=== PATIENT | male | born 1995 | race Caucasian/White ===

== ENCOUNTER 2022-11-07 08:04 | Emergency (ER) | payer SELFPAY ==
[2022-11-07 08:06] VITALS: BP 109/63; PULSE 87; RESP 18; TEMP 36.4; O2SAT 100; BMI 19.9
--- NOTE | 2022-11-07 09:56 | ED_ITS ---
HPI - General Adult General Chief complaint: Wound/Laceration Stated complaint: L toe infection/ wound Time Seen by Provider: 11/07/22 09:13 History of Present Illness HPI narrative: Patient complains of left big toe pain and redness for weeks to months gradually worsening, he does not recall any acute injury He denies fever denies chills denies numbness weakness or tingling Related Data Previous Rx's Medication Instructions Recorded cephalexin 500 mg tablet 500 mg PO QID 7 days #28 tabs 11/07/22 Allergies Allergy/AdvReac Type Severity Reaction Status Date / Time No Known Allergies Allergy Verified 11/07/22 09:58 PMFSH Past Medical History [facility] Narrative: Denies relevant medical history Social History Social History Advance Directives: No Advance Directives Information Provided: No Physical Exam ED Vital Signs: Vital Signs - 24 hr 11/07/22 08:06 Temperature 97.5 F Pulse Rate 87 Respiratory Rate 18 Blood Pressure 109/63 Pulse Oximetry 100 Oxygen Delivery Method Room Air BMI result Body Mass Index 19.9 General appearance no acute distress Head is normocephalic atraumatic Neck is supple Respiratory no distress Extremities full range of motion x4 The aunt toenail on the left big toe is broken in the middle, it does appear that there is no ingrown section on the medial side of the toe, there is erythema, no significant swelling, the erythema extends down to the D IP joint on the dorsal surface of the toe, it is not circumferential, the toes neurovas cular intact, skin is intact, no discharge from wound no fluctuance no lymphangitis, redness is limited to distal phalanx of the toe dorsal surface Course Course Course Narrative: I recommended numbing the toe which is digital block, and then removing what I believe to be is the ingrown section of broken nail on the medial side and making sure the other side was cleaned as well by removing any ingrown nail, I also recommended getting an x-ray Patient refused any treatment of the nail did not want a digital block did not want an x-ray and did not want me to remove the ingrown section of nail and clean up the nail bed I advised him that antibiotics alone may not relieve the problem, and he said he wants to try the antibiotics he will do some warm soaks of his foot and he knows he can come back here any time Discharge Plan Discharge Clinical Impression: Ingrown nail, Cellulitis Patient Disposition: Home, Self-Care Additional Instructions: Use Keflex antibiotic, you can try soaking foot in warm water You did not want any procedure to remove the ingrown nail today but you are welcome to come back any time and we can clean it up and remove any ingrown nail If not improved you can come back any time Return any time for spreading redness worse pain and swelling any worse condition or any concerns Prescriptions: New cephalexin 500 mg tablet 500 mg PO QID 7 Days Qty: 28 0RF
--- NOTE | 2022-11-07 10:07 | PC.NURSE ---
SEEN AND DISCHARGED BY PROVIDER
== END 2022-11-07 10:08 | disposition home or self-care (01) ==
PROVIDERS: Emergency Provider Emergency Medicine
DX: L60.0 Ingrowing nail (principal)
CPT/HCPCS: 11750; 99281; 99283

== ENCOUNTER 2023-03-15 18:17 | Inpatient (IN) | payer SELFPAY ==
--- NOTE | 2023-03-15 18:23 | MHC.CARE ---
Pt is brought in by [facility] co response, father called PD. Pt has hx of depression w/ psychosis. Consistent w/ current presentation. Hx of 1 suicide attempt. Asked father for a euthanasia device and stated that he [place] is after him. Reported SI. Pt was picked up from his apartment, gestured to jump from [employer]. Pt lives alone, father lives in [place]. Substance use unknown. No meds, no outpatient providers. Can stabilize on medication. Insight, impulse very limited, as well as judgment. Hx of aggression, currently calm. Father is Herve Cochran: [phone]
[2023-03-15 18:41] VITALS: BMI 19.3
--- NOTE | 2023-03-15 19:04 | ED.PSYCH ---
HPI - Psych General Chief Complaint: Psychiatric Symptoms Stated Complaint: SEC 12 BY [facility][NOTE 3] FOR DEPRESSION PER EMS Time Seen by Provider: 03/15/23 18:41 Source: patient and EMS Mode of arrival: EMS Limitations: no limitations History of Present Illness HPI Narrative: It comes emergency room on a Section 12 via ambulance. Patient states that he was Section 12 because he asked his father question regarding medication for euthanasia. Patient's fathe called 911. Per EMS, patient has had multiple suicide attempts in the past. Here in the emergency room, patient states that he is not suicidal or homicidal. Accepts that he did speak to his father about euthanasia, but patient states that it was not his intent to talk about suicide. Related Data Home Medications Medication Instructions Recorded Confirmed No Known Home Meds 03/15/23 03/15/23 Allergies Allergy/AdvReac Type Severity Reaction Status Date / Time No Known Allergies Allergy Verified 11/07/22 09:58 Review of Systems Review of Systems: Constitutional : No Weight loss, No Fever, No Chills, No Night Sweats, No Fatigue, No Malaise ENT/Mouth : No Hearing loss, No Ear Pain, No Nasal Congestion, No Sinus Pain, No Hoarseness, No sore throat, No Rhinorrhea, No Swallowing Difficulty Eyes: No Eye Pain, No Swelling, No Redness, No Foreign Body, No Discharge, No Vision Changes Cardiovascular : No Chest Pain, No SOB, No Dyspnea on Exertion, No Orthopnea, No Edema, No Palpitations Respiratory : No Cough, No Sputum, No Wheezing, No Smoke Exposure, No Dyspnea Gastrointestinal : No Nausea, No Vomiting, No Diarrhea, No Constipation, No abdominal Pain, No Hematochezia, No Melena Genitourinary : no irregular bleeding, No Dysuria, No Urinary Frequency, No Hematuria, No Urinary Incontinence, No Urgency, No Flank Pain, No Urinary Flow Changes, No Hesitancy Musculoskeletal : No joint pain, No Myalgias, No Joint Swelling Skin : No Skin Lesions, No rash Neuro : No Weakness, No Numbness, No Paresthesias, No Loss of Consciousness, No Dizziness, No Headache Psych : Complaining of anxiety, admits to talking about euthanasia with his father, denies SI or HI Heme/Lymph: No Bruising, No Bleeding,No Lymphadenopathy Endocrine : No Polyuria, No Polydipsia, No Temperature Intolerance Physical Exam Vital Signs: Vital Signs: BMI result Body Mass Index 19.3 Const: Other: Appearance: Alert. Oriented X3. No acute distress. Eyes: Pupils equal, round and reactive to light. ENT: Pharynx normal. Neck: Normal inspection. Neck supple. No lymph nodes noted. No crepitus CVS: Normal heart rate and rhythm. Pulses normal. Normal S1 and S2 Respiratory: No respiratory distress. Breath sounds normal. No Wheezing. No rales Abdomen: Soft and nontender. No rigidity. No distention. Skin: Skin warm and dry. Normal skin color. Normal skin turgor. Extremities: No lower extremity edema. No Lacerations. No Rash Neuro: Oriented X 3. No motor deficit. No sensory deficit. Moving all extremities. No slurred speech. CN 2 through 12 grossly intact Psych: calm, cooperative, normal affect, coherent Course Course Course Narrative: -patient is on a Section 12 started in the community -behavioral health/care team consult pending -physician observation started at 19:00 Discharge Plan Discharge Clinical Impression: Depression Patient Disposition: Still a Patient Prescriptions: No Action cephalexin 500 mg tablet 500 mg PO QID 7 Days Qty: 28 0RF
[2023-03-15 19:28] LABS: MANUAL DIFF FLAG NO
[2023-03-15 19:29] LABS: Basophils Absolute Auto 0.1 X10*3/uL (0.0-0.2); Basophils Percent Auto 1.3 % (0-2); Eosinophils Percent Auto 0.7 % (0-4); Hematocrit 45.1 % (42.0-52.0); Hemoglobin 14.7 g/dl (14.0-18.0); Imm Gran Abs Auto 0.01 X10*3/uL (0.00-0.03); Imm Gran Pct Auto 0.2 % (0.0-0.4); Lymphocytes Absolute Auto 1.5 X10*3/uL (1.2-4.9); Lymphocytes Percent Auto 25.1 % (20-40); Mean Corpuscular HGB Conc 32.6 g/dl (31.0-36.0); Mean Corpuscular Hemoglobin 27.8 pg (27.0-33.0); Mean Corpuscular Volume 85.3 fL (80.0-98.0); Mean Platelet Volume 10.6 fL (9.4-12.4); Monocytes Absolute Auto 0.5 X10*3/uL (0.1-1.2); Monocytes Percent Auto 8.8 % (2-11); Neutrophils Absolute Auto 3.8 x10*3/uL (2.0-8.3); Neutrophils Percent Auto 63.9 % (45-73); Platelet Count 223 X10*3/uL (160-400); Red Blood Count 5.29 X10*6/uL (4.60-5.80); Red Cell Distribution Width 12.1 % (11.0-16.0); White Blood Count 5.9 X10*3/uL (4.8-10.8)
[2023-03-15 19:30] LABS: Appearance Urine Clear; Color Urine Yellow; Glucose Urine UA Negative (Negative); Leukocyte Esterase Urine Small (1+) (Negative); Nitrite Urine Negative (Negative); PH 5.5 (5.0-9.0); Specific Gravity - Urine 1.025 (1.005-1.025); UMIC TRIGGER UA YES; Urine Blood Negative (Negative); Urine Ketones Trace mg/dL (Negative); Urine Protein Negative (Neg-Trace)
[2023-03-15 19:33] LABS: Bacteria Urine None Seen (None Seen); Hyaline Casts Urine 0-2 /LPF (0-2); RBC Urine 0-2 /HPF (0-2); Squamous Epithelial Cell Urine 0-2 /HPF (0-2); WBC Urine 21-50 /HPF (0-5)
[2023-03-15 19:47] LABS: Amphetamine Screen Urine Not Detected (Not Detect); Barbiturates, Urine Not Detected (Not Detect); Benzodiazepines Screen Urine Not Detected (Not Detect); Cannabinoid Screen Urine Not Detected (Not Detect); Cocaine Screen Urine Not Detected (Not Detect); Fentanyl, urine Not Detected (Not Detect); Opiate Screen Urine Not Detected (Not Detect); Phencyclidine Screen Urine Not Detected (Not Detect)
[2023-03-15 19:48] LABS: Alanine Aminotransferase 11 U/L (0-40); Alkaline Phosphatase 63 U/L (39-117); Anion Gap 16 (12-20); Aspartate Amino Transferase 16 U/L (5-37); Bilirubin Total 0.6 mg/dL (0.0-1.0); Blood Urea Nitrogen 20 mg/dL (9-16); Carbon Dioxide 25 mmol/L (22-29); Chloride 101 mmol/L (96-108); Creatinine Clr Calc Pharmacy 138.1; Estimated Glomerular Filt Rate > 60; Glucose Random 98 mg/dL (60-115); Potassium 4.3 mmol/L (3.3-5.1); Sodium 138 mmol/L (135-145); Total Protein 7.7 g/dL (6.5-8.0)
[2023-03-15 20:19] LABS: Ethanol < 10 mg/dL
[2023-03-15 21:25] VITALS: BP 120/59; PULSE 66; RESP 18; TEMP 36.4; O2SAT 97
[2023-03-16 06:22] VITALS: RESP 18
[2023-03-16 06:41] VITALS: BP 112/64; PULSE 79; RESP 19; TEMP 36.5; O2SAT 97
--- NOTE | 2023-03-16 06:55 | PC.NURSE ---
Patient slept through the night, no distress observed/reported, disposition per care team section 12 inpatient bed search, behavior not concerning at this time but unpredictable with high elopement risk, patient has been closely observed, patient is currently not on any medication, thought content paranoid, VSS, labs completed/resulted, will continue to monitor.
[2023-03-16 07:39] LABS: COVID-19 Test Negative (Negative); IDNOW Serial# BCCEAD1C
[2023-03-16 07:44] VITALS: BP 115/68; PULSE 79; RESP 16; TEMP 36.1; O2SAT 97
--- NOTE | 2023-03-16 10:20 | PC.NURSE ---
Patient pacing in hallway. Patient is calm and cooperative at this time, no s/s of distress noted, no s/s of elopement behavior.
--- NOTE | 2023-03-16 10:26 | PC.NURSE ---
Patient requesting turkey and tuna sandwiches which were provided for him.
--- NOTE | 2023-03-16 16:07 | PC.NURSE ---
Report given to nurse on M3, nurse came with wheelchair to assist patient to unit.
[2023-03-16 18:00] VITALS: BP 117/67; PULSE 82; RESP 18; TEMP 36.7; O2SAT 94
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
[2023-03-16 20:20] VITALS: BP 123/68; PULSE 65; RESP 17; TEMP 36.2; O2SAT 98
--- NOTE | 2023-03-17 09:06 | PC.NURSE ---
Patient refused AM labs.
[2023-03-17 09:08] VITALS: BP 127/87; PULSE 86; RESP 18; TEMP 36.2; O2SAT 97
[2023-03-17 11:32] VITALS: BMI 19.2
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
[2023-03-17 19:23] VITALS: BP 121/72; PULSE 72; RESP 18; TEMP 36.6; O2SAT 97
[2023-03-18 06:00] VITALS: BP 111/90; PULSE 72; RESP 16; TEMP 36.6; O2SAT 99
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
[2023-03-18 20:25] VITALS: BP 100/60; PULSE 70; RESP 18; TEMP 36.6; O2SAT 99
[2023-03-19 09:27] VITALS: BP 125/60; PULSE 85; RESP 20; TEMP 36.6; O2SAT 99
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
[2023-03-19 19:55] VITALS: RESP 18
[2023-03-20 07:58] VITALS: BP 106/63; PULSE 90; RESP 20; TEMP 36.6; O2SAT 96
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
[2023-03-20 21:09] VITALS: RESP 18
[2023-03-21 09:04] VITALS: BP 103/61; PULSE 69; RESP 17; TEMP 36.6; O2SAT 98
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
[2023-03-21 20:22] VITALS: RESP 14
[2023-03-22 09:25] VITALS: BP 100/65; PULSE 82; RESP 18; TEMP 36.8; O2SAT 97
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
[2023-03-24 09:15] VITALS: BMI 19.5
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
== END 2023-03-24 11:45 | disposition home or self-care (01) | DRG 885 ==
LOC: HO.ED 03-16 07:16 → HO.PADLT16 03-16 15:50
PROVIDERS: Admitting Provider Psychiatry & Neurology Psychiatry; Emergency Provider Emergency Medicine; Visit Provider Psychiatry & Neurology Psychiatry
DX: F23 Brief psychotic disorder (principal); R45.851 Suicidal ideations; F32.A Depression, unspecified; Z91.51 Personal history of suicidal behavior; Z20.822 Contact with and (suspected) exposure to COVID-19
CPT/HCPCS: 36415; 80053; 80307; 81001; 82607; 82746; 85025; 87635; 99285; S9485

== ENCOUNTER 2023-04-26 20:12 | Inpatient (IN) | payer SELFPAY ==
[2023-04-26 20:18] VITALS: BP 131/71; PULSE 92; RESP 16; TEMP 36.8; O2SAT 97; BMI 19.8
[2023-04-26 21:00] LABS: MANUAL DIFF FLAG NO
[2023-04-26 21:01] LABS: Basophils Absolute Auto 0.1 X10*3/uL (0.0-0.2); Basophils Percent Auto 1.5 % (0-2); Eosinophils Absolute Auto 0.1 X10*3/uL (0.0-0.4); Eosinophils Percent Auto 1.9 % (0-4); Hematocrit 44.1 % (42.0-52.0); Hemoglobin 14.5 g/dl (14.0-18.0); Imm Gran Abs Auto 0.02 X10*3/uL (0.00-0.03); Imm Gran Pct Auto 0.3 % (0.0-0.4); Lymphocytes Absolute Auto 1.9 X10*3/uL (1.2-4.9); Lymphocytes Percent Auto 31.7 % (20-40); Mean Corpuscular HGB Conc 32.9 g/dl (31.0-36.0); Mean Corpuscular Volume 85.3 fL (80.0-98.0); Mean Platelet Volume 11.1 fL (9.4-12.4); Monocytes Absolute Auto 0.5 X10*3/uL (0.1-1.2); Monocytes Percent Auto 8.4 % (2-11); Neutrophils Absolute Auto 3.3 x10*3/uL (2.0-8.3); Neutrophils Percent Auto 56.2 % (45-73); Platelet Count 206 X10*3/uL (160-400); Red Blood Count 5.17 X10*6/uL (4.60-5.80); Red Cell Distribution Width 12.3 % (11.0-16.0); White Blood Count 5.9 X10*3/uL (4.8-10.8)
--- NOTE | 2023-04-26 21:16 | ED.PSYCH ---
HPI - Psych General Chief Complaint: Psychiatric Symptoms Stated Complaint: SI WITH PLAN Time Seen by Provider: 04/26/23 21:03 Source: patient and old records reviewed Mode of arrival: EMS Limitations: no limitations History of Present Illness HPI Narrative: patient withdrawn to me and upset he is here admits to sending text messages to someone about asking for a gun to end his life but he doesn't belong here and needs to go home. MD complaint: feels depressed and anxiety Onset (ago): month(s) Duration: intermittent History of same: Yes Relieving factors: none Exacerbating factors: none Associated psychiatric symptoms: depression Associated symptoms: denies other symptoms Treatments prior to arrival: placed on mental health hold If self harm: other (denies everything to me) Related Data Home Medications Medication Instructions Recorded Confirmed No Known Home Meds 04/26/23 04/26/23 Allergies Allergy/AdvReac Type Severity Reaction Status Date / Time No Known Allergies Allergy Verified 11/07/22 09:58 Review of Systems Review of Systems: Constitutional : No Fever, No Chills Cardiovascular : No Chest Pain, No SOB Respiratory : No Cough, No Sputum, No Dyspnea Gastrointestinal : No Nausea, No Vomiting, No Diarrhea, No Hematochezia, No Melena Genitourinary : No Dysuria, No Urinary Frequency, No Hematuria Musculoskeletal : No Myalgias Skin : No Skin Lesions, No rash Neuro : No Weakness, No Numbness, No Paresthesias, No Dizziness, No Headache Psych : no Anxiety, positive Depression, no SI/HI All other systems reviewed and are negative PMFSH Past Medical History Attestation statement: The following information was validated with the patient. Medical History Depression Unspecified psychosis Social History Social History Household Members: None Housing: Apartment Do you presently have visiting nurse or other home services: No Patient Tobacco Use Status: Never used Tobacco Substance Use Type: Marijuana Advance Directives: No Advance Directives Information Provided: Yes service: No Sexual orientation: Decline to Answer Physical Exam Vital Signs: Vital Signs: Last Vital Signs Temp 98.3 F 04/26/23 20:18 Pulse 92 04/26/23 20:18 Resp 16 04/26/23 20:18 BP 131/71 04/26/23 20:18 Pulse Ox 97 04/26/23 20:18 O2 Del Method Room Air 04/26/23 20:18 BMI result Body Mass Index 19.8 Appearance: Alert. Oriented X3. No acute distress. Eyes: Pupils equal, round and reactive to light. ENT: Pharynx normal. Neck: Normal inspection. Neck supple. CVS: Normal heart rate and rhythm. Pulses normal. Respiratory: No respiratory distress. Breath sounds normal. Abdomen: Soft and nontender. Skin: Skin warm and dry. Normal skin color. Normal skin turgor. Extremities: No lower extremity edema. Neuro: Oriented X 3. No motor deficit. No sensory deficit. CN2-12 intact Course Course Course Narrative: Physician observation started at 918pm. Patient has no medical complaints unhappy he is here. Evaluated by CARE team and it was determined that the patient should be inpatient bed search. Patient resting comfortably, NAD, lungs clear, CV RRR, Abd nontender, Neuro intact Medical Decision Making Medical Decision Making [facility] Narrative: 27 yo male with hx of depression not on medications who sent text messages with SI thoughts and plan S12 bed search from community no medical complaints - will obtain labs and place in observation for bed search Differential Diagnosis Differential Diagnoses: The differential diagnosis associated with the presentation includes SI, depression, psychosis Admission/Observation Consideration of admission/observation: Escalation of care including admission/observation considered S12 bed search for SI Consult Healthcare Provider Management of the patient was discussed with: Behavioral Health Provider Lab Data [facility] Lab Attestation statement: I reviewed the patient's lab results. 04/26/23 20:56 04/26/23 20:56 Labs: Lab Results 04/26/23 Range/Units 20:56 WBC 5.9 (4.8-10.8) X10*3/uL RBC 5.17 (4.60-5.80) X10*6/uL Hgb 14.5 (14.0-18.0) g/dl Hct 44.1 (42.0-52.0) % MCV 85.3 (80.0-98.0) fL MCH 28.0 (27.0-33.0) pg MCHC 32.9 (31.0-36.0) g/dl RDW 12.3 (11.0-16.0) % Plt Count 206 (160-400) X10*3/uL MPV 11.1 (9.4-12.4) fL Immature Gran % (Auto) 0.3 (0.0-0.4) % Neut % (Auto) 56.2 (45-73) % Lymph % (Auto) 31.7 (20-40) % Brooke % (Auto) 8.4 (2-11) % Eos % (Auto) 1.9 (0-4) % Baso % (Auto) 1.5 (0-2) % Lymph # (Auto) 1.9 (1.2-4.9) X10*3/uL [place]oke # (Auto) 0.5 (0.1-1.2) X10*3/uL Eos # (Auto) 0.1 (0.0-0.4) X10*3/uL Baso # (Auto) 0.1 (0.0-0.2) X10*3/uL Abs Immat Gran (auto) 0.02 (0.00-0.03) X10*3/uL Absolute Neuts (auto) 3.3 (2.0-8.3) x10*3/uL Absolute Nucleated RBC 0.000 (0.0-0.012) X10*3/uL Nucleated RBC % (auto) 0.0 (0.0-0.2) /100WBC Independent Historian Clinical information obtained from an independent historian. History obtained from or confirmed by: EMS External Record Review External record reviewed: Inpatient record Social Determinants Patient?s care significantly limited by Social Determinants of Health including: Problems related to primary support group Discharge Plan Discharge Clinical Impression: Suicidal ideation Patient Disposition: Still a Patient Prescriptions: No Action No Known Home Meds
[2023-04-26 21:27] LABS: Acetaminophen LAB < 17 mcg/mL (<30); Alanine Aminotransferase 15 U/L (0-40); Albumin Level 4.7 g/dL (3.5-5.0); Alkaline Phosphatase 62 U/L (39-117); Anion Gap 13 (12-20); Aspartate Amino Transferase 17 U/L (5-37); Bilirubin Total 0.4 mg/dL (0.0-1.0); Blood Urea Nitrogen 14 mg/dL (9-16); Calcium 9.2 mg/dL (8.4-10.2); Carbon Dioxide 27 mmol/L (22-29); Chloride 106 mmol/L (96-108); Creatinine Clr Calc Pharmacy 134.6; Estimated Glomerular Filt Rate > 60; Ethanol < 10 mg/dL; Glucose Random 98 mg/dL (60-115); Potassium 3.9 mmol/L (3.3-5.1); Salicylate < 5.0 mg/dL (15-30); Sodium 142 mmol/L (135-145); Total Protein 7.4 g/dL (6.5-8.0)
[2023-04-26 21:37] LABS: Appearance Urine Clear; Color Urine Yellow; Glucose Urine UA Negative (Negative); Leukocyte Esterase Urine Small (1+) (Negative); Nitrite Urine Negative (Negative); Specific Gravity - Urine 1.025 (1.005-1.025); UMIC TRIGGER UA YES; Urine Blood Negative (Negative); Urine Ketones Negative (Negative); Urine Protein Negative (Neg-Trace)
[2023-04-26 21:42] LABS: Amphetamine Screen Urine Not Detected (Not Detect); Bacteria Urine None Seen (None Seen); Barbiturates, Urine Not Detected (Not Detect); Benzodiazepines Screen Urine Not Detected (Not Detect); Cannabinoid Screen Urine Not Detected (Not Detect); Cocaine Screen Urine Not Detected (Not Detect); Fentanyl, urine Not Detected (Not Detect); Hyaline Casts Urine 0-2 /LPF (0-2); Opiate Screen Urine Not Detected (Not Detect); Phencyclidine Screen Urine Not Detected (Not Detect); RBC Urine 0-2 /HPF (0-2); Squamous Epithelial Cell Urine 0-2 /HPF (0-2); WBC Urine 21-50 /HPF (0-5)
--- NOTE | 2023-04-27 06:29 | PC.NURSE ---
Patient slept through the night, no distress observed/reported, behavior non concerning, disposition per [facility] is section 12 inpatient bed search, VSS, labs completed/resulted, will continue to monitor
[2023-04-27 06:46] VITALS: RESP 16
--- NOTE | 2023-04-27 08:35 | PC.NURSE ---
assumed care of pt at 0700, pt asking to speak to someone from care team regarding plan of care, pt pacing around BH pod, calm and cooperative at this time.
--- NOTE | 2023-04-27 09:22 | MHC.EDTECH ---
Patient refusing EKG/Covid swab until he speaks with CARE team. ECHO Hansen aware.
--- NOTE | 2023-04-27 10:08 | PC.NURSE ---
pt requesting to speak with [facility], per [facility] staff will be at ED for eval shortly.
--- NOTE | 2023-04-27 12:10 | PC.NURSE ---
Pt refused EKG and covid swap until confirmation of admission to an inpatient unit from [facility]
--- NOTE | 2023-04-27 12:14 | PC.NURSE ---
pt refusing blood work and EKG at this time, requesting to speaking MD about plan of care
--- NOTE | 2023-04-27 12:58 | PC.NURSE ---
spoke to [facility] who states they transferred to care team. This RN spoke with care team who stated they will attempt to speak with the patient this afternoon
--- NOTE | 2023-04-27 13:41 | PC.NURSE ---
patient sleeping at this time, will hold off on vitals until patient wakes up due to patient being restless prior to falling asleep
--- NOTE | 2023-04-27 14:52 | PC.NURSE ---
pt continuing to ask this RN to speak with someone who is in charge of decision making. This RN educated patient that he spoke with Julia from the CARE team about 40 minutes prior. Pt requesting to speak to CARE team again. This RN informed CARE team of the request
--- NOTE | 2023-04-27 15:08 | MHC.EDTECH ---
Refused vitals. RN aware.
--- NOTE | 2023-04-27 15:17 | PC.NURSE ---
Patient came out of room and was asking to someone in charge of his care. Explained to patient that the care team was talking with a patient right now but would come and talk to him afterwards. Patient unhappy with this answer and asked to talk to someone from [facility]. This nurse let him know that per shift change report it seemed the plan was for [facility] to see the patient tomorrow. Patient asked what the plan for his care is and he was informed that the plan right now is for the patient to go inpatient. Patient asked if this would happen tonight and he was informed that it was dependant on bed availability and lab work and EKG results. Patient asked if it was possible for us to get a blood pressure or any lab work on the him and patient refused at this time.
--- NOTE | 2023-04-27 16:59 | PC.NURSE ---
Nurse to nurse given to Elissa on M3. Plan for patient to be admitted tonight.
--- NOTE | 2023-04-27 17:11 | PC.NURSE ---
Patient approached nurses station and stated I wanted to make sure it's in my record that the reason I wanted the gun is not just for general protection or because of constitutional rights but because there have been threats made against me. Patient did not further elaborate on this and just wanted to make sure it went somewhere in his chart.
--- NOTE | 2023-04-27 18:51 | PC.ADMIT ---
Pt is a 27 y/o vietnamese speaking male admitted from the [facility] ED on a CV. The pt had been texting a friend in [place] with paranoid delusions that the world is fake, nothing feels real anymore, and people are sending me threats. He then asked his friend about buying a gun to protect himself and to have the power to control ending his life. The [employer] verified the txt, although the pt denies any thoughts of harming himself. Pt is A&O x3, mood is anxious with a blunted affect. Christopher shows no insight into his mental illness. Pt denies SI/HI/AH/VH. Eye contact was intense, glaring at T/W throughout admission. Thought process appears paranoid and delusional. He reports poor sleep since, receiving threats. He has not been taking medications and refuses that he needs them. Tox screen was negative. Pt placed on 15 minute checks.
--- NOTE | 2023-04-28 09:17 | HO.PSYADMNOT ---
HPI Date of Service: 04/28/23 Chief Complaint: SI,Psychosis Sources of Information: patient interviewed, chart reviewed and crisis/core team assessment reviewed HPI Subjective Notes: 3 Day Narrative: Pt is a 27 year old male with hx of schizophrenia (recently discharged from on 03/24/2023), who was assessed by [facility] crisis team secondary to him texting his friend in [place] endorsing derealization and paranoid delusion of someone sending him text message threats. According to the crisis report, patient asked his friend how to obtain a gun so that he had the power to end his life. During admission assessment pt presents calm and cooperative. He reports that everything on that report is false . Patient stated, I wasn't asking for a gun for suicide. I want it for protection; I was receiving threats via text message. I don't know who it is or why they want to kill me. I deleted the message. It could be a scam. That's why I was looking for a gun. Now I won't be able to get one because they will know I have been sectioned . Patient reports he does not have any psychiatric providers nor does he want any. He does not want any medications. Patient stated, I don't need to take anything. I was suicidal in the past but I'm not now. I shouldn't be here . Patient denies any ETOH or substance use; UTOX negative. Denies SI/HI/VH/AH. He has poor insight and judgment into his actions. Past Psychiatric History: hosps: 4 prior SA: at least 2 prior. attempt via drug overdose in [place]. some aborted, such has father sending pt's pic to [facility] after pt identified a building he planned to jump from and [facility] apprehending pt at said bldg. SIB: unknown outpt Tx: none presently father reported h/o son's being Dx'ed with MDD with psychotic Fx. reportedly good response to IM abilify but father said he stopped due to it's making him feel weird in the head and impotent. pt reported to this sql report writer that it gave him nerve pain in his arm. Medical Evaluation Reviewed: Yes [facility] Medical History Depression Unspecified psychosis Family History: unknown Social History: lives alone in an apartment in [place]. family lives in [place]. reports he lives off of a trust fund. father has a restraining order against him due to aggression and threats pt has made against father. Substance History: denies any substance use. Trauma History: none reported Diagnostics Vital Signs (24Hr): BMI result Body Mass Index 19.8 Labs 04/26/23 20:56 04/26/23 20:56 Labs: Laboratory Results - last 48 hr 04/26/23 04/26/23 04/26/23 20:56 20:56 20:56 WBC 5.9 RBC 5.17 Hgb 14.5 Hct 44.1 MCV 85.3 MCH 28.0 MCHC 32.9 RDW 12.3 Plt Count 206 MPV 11.1 Immature Gran % (Auto) 0.3 Neut % (Auto) 56.2 Lymph % (Auto) 31.7 [place] % (Auto) 8.4 Eos % (Auto) 1.9 Baso % (Auto) 1.5 Lymph # (Auto) 1.9 [place] # (Auto) 0.5 Eos # (Auto) 0.1 Baso # (Auto) 0.1 Abs Immat Gran (auto) 0.02 Absolute Neuts (auto) 3.3 Absolute Nucleated RBC 0.000 Nucleated RBC % (auto) 0.0 Sodium 142 Potassium 3.9 Chloride 106 Carbon Dioxide 27 Anion Gap 13 BUN 14 Creatinine 0.80 Estim Creat Clear Calc 134.6 Estimated GFR > 60 Random Glucose 98 Calcium 9.2 D Total Bilirubin 0.4 AST 17 ALT 15 Alkaline Phosphatase 62 Total Protein 7.4 Albumin 4.7 Urine Color Urine Appearance Urine pH Ur Specific [place] Urine Protein Urine Glucose (UA) Urine Ketones Urine Blood Urine Nitrite Ur Leukocyte Esterase Urine RBC Urine WBC Ur Squamous Epith Cells Urine Bacteria Hyaline Casts Salicylates < 5.0 L Urine Opiates Screen Urine Fentanyl Screen Acetaminophen < 17 Ur Barbiturates Screen Ur Phencyclidine Scrn Ur Amphetamines Screen U Benzodiazepines Scrn Urine Cocaine Screen U Marijuana (THC) Screen Ethyl Alcohol < 10 04/26/23 04/26/23 21:24 21:24 WBC RBC Hgb Hct MCV MCH MCHC RDW Plt Count MPV Immature Gran % (Auto) Neut % (Auto) Lymph % (Auto) [place] % (Auto) Eos % (Auto) Baso % (Auto) Lymph # (Auto) [place] # (Auto) Eos # (Auto) Baso # (Auto) Abs Immat Gran (auto) Absolute Neuts (auto) Absolute Nucleated RBC Nucleated RBC % (auto) Sodium Potassium Chloride Carbon Dioxide Anion Gap BUN Creatinine Estim Creat Clear Calc Estimated GFR Random Glucose Calcium Total Bilirubin AST ALT Alkaline Phosphatase Total Protein Albumin Urine Color Yellow Urine Appearance Clear Urine pH 6.0 Ur Specific [place] 1.025 Urine Protein Negative Urine Glucose (UA) Negative Urine Ketones Negative Urine Blood Negative Urine Nitrite Negative Ur Leukocyte Esterase Small (1+) H Urine RBC 0-2 Urine WBC 21-50 H Ur Squamous Epith Cells 0-2 Urine Bacteria None Seen Hyaline Casts 0-2 Salicylates Urine Opiates Screen Not Detected Urine Fentanyl Screen Not Detected Acetaminophen Ur Barbiturates Screen Not Detected Ur Phencyclidine Scrn Not Detected Ur Amphetamines Screen Not Detected U Benzodiazepines Scrn Not Detected Urine Cocaine Screen Not Detected U Marijuana (THC) Screen Not Detected Ethyl Alcohol Meds/Allergies Meds Home Medications Medication Instructions Recorded Confirmed Type No Known Home Meds 04/26/23 04/26/23 History Allergies Allergies Allergy/AdvReac Type Severity Reaction Status Date / Time No Known Allergies Allergy Verified 11/07/22 09:58 Mental Status Exam Mental Status Exam Narrative: Pt is alert and oriented; behavior is cooperative and calm; patient is not in distress; dressed in hospital attire with unkempt hair and poor hygiene; mood is described as fine ; eye contact appropriate; Speech is normal rate, volume and prosody and not pressured; no psychomotor agitation/retardation present; thought process is organized; Thought content is on being discharged; pt reports he is receiving threats via text message from an unknown person; denies any SI/HI. There is no evidence of perceptual disturbance. Patients insight and judgment are poor. Assessment & Plan Assessment & Plan (1) Schizophrenia: Status: Acute Code(s): F20.9 - Schizophrenia, unspecified Plan Pt is a 27 year old male with hx of schizophrenia (recently discharged from on 03/24/2023), who was assessed by [facility] crisis team secondary to him texting his friend in [place] endorsing derealization and paranoid delusion of someone sending him text message threats. According to the crisis report, patient asked his friend how to obtain a gun so that he had the power to end his life. Plan: 3 day 15 minute safety checks Referral to outpatient psychiatrist and therapist Start: Zyprexa 5mg PO BID Patient educated on: diagnosis and medication risk/benefits Informed Consent: understands and further education needed Reason for continued inpatient stay Substantial Risk for: med/psych decompensation Statement Statement: I have reviewed the history and physical and performed a pertinent examination on my patient. No changes have occurred unless specified. If the History and Physical was not performed prior to admission, the Hospitalist's service will be consulted for completing the admission physical. Time Spent With Patient Time: Total time managing care of this patient today _60___ minutes.
[2023-04-28 21:35] VITALS: RESP 16
[2023-04-29 09:00] VITALS: BP 101/58; PULSE 95; RESP 16; TEMP 36.6; O2SAT 96
--- NOTE | 2023-04-29 09:04 | P.PNPSI_ITS ---
Subjective Subjective Date of Service: 04/29/23 Reason For Visit: SI,Psychosis Subjective Notes: 3 Day Interim History: Reviewed in team and Dr. Linares. Patient reports he does not feel he should be hospitalized. Patient stated, I want a gun for half empowerment to take my own life and half for protection. I don't feel safe in my apartment because someone is messing with me. Like putting soap in my almonds, pulling out my outlet, messing with my car's muffler. I think my landlord is doing it. I get fucked over by a lot of people I don't know why . Medication Compliance: Intermittent Side effects from medications: No Attending Groups: No Review of Systems Constitutional: Reports as per HPI Eyes: Reports as per HPI Reports as per HPI Cardiovascular: Reports as per HPI Respiratory: Reports as per HPI Gastrointestinal: Reports as per HPI Genitourinary: Reports as per HPI Musculoskeletal: Reports as per HPI Skin/Breast: Reports as per HPI Reports as per HPI Psychiatric: Reports as per HPI Endocrine: Reports as per HPI Hematologic/Lymphatic: Reports as per HPI Allergic/Immunologic: Reports as per HPI Mental Status Exam Mental Status Exam Narrative: Pt is alert and oriented; behavior is calm; dressed in hospital attire with unkempt hair and poor hygiene; mood is described as fine ; eye contact appropriate; Speech is normal rate, volume and prosody and not pressured; no psychomotor agitation/retardation present; thought process is organized; Thought content is on discharge; patient presents with paranoid delusions regarding his landlord or someone messing with him . ; pt reports wanting to possess a gun for empowerment to commit suicide . There is no evidence of perceptual disturbance. Patients insight and judgment are poor. Diagnostics Vital Signs (24Hr): Vital Signs - 24 hr 04/28/23 21:35 Respiratory Rate 16 BMI result Body Mass Index 19.8 Labs 04/26/23 20:56 04/26/23 20:56 Medications Medications Current Medications Acetaminophen (Acetaminophen 325 Mg Tablet) 650 mg PO Q6H PRN PRN Reason: Headache/Pain Mild Scale (1-3) Al Hydroxide/Mg Hydroxide (Magnesium Hydrox/Alum Hydrox 30 Ml Oral.Susp) 30 ml PO Q6H PRN PRN Reason: Heartburn/Nausea Hydroxyzine HCl (Hydroxyzine Hcl 25 Mg Tablet) 25 mg PO Q6H PRN PRN Reason: Anxiety Magnesium Hydroxide (Milk Of Magnesia 30 Ml Oral.Susp) 30 ml PO DAILY PRN PRN Reason: Constipation Olanzapine (Olanzapine 5 Mg Tablet) 5 mg PO BID DREW Last Admin: 04/29/23 08:57 Dose: Not Given Trazodone HCl (Trazodone Hcl 50 Mg Tablet) 50 mg PO BEDTIME MRX1 PRN PRN Reason: Insomnia Allergies Allergies Allergy/AdvReac Type Severity Reaction Status Date / Time No Known Allergies Allergy Verified 11/07/22 09:58 Assessment & Plan Assessment & Plan (1) Schizophrenia: Status: Acute Code(s): F20.9 - Schizophrenia, unspecified Plan Pt is a 27 year old male with hx of schizophrenia (recently discharged from on 03/24/2023), who was assessed by [facility] crisis team secondary to him texting his friend in [place] endorsing derealization and paranoid delusion of someone sending him text message threats. According to the crisis report, patient asked his friend how to obtain a gun so that he had the power to end his life. Plan: 3 day 15 minute safety checks Referral to outpatient psychiatrist and therapist Zyprexa 5mg PO BID 04/29: Patient reports he does not feel he should be hospitalized. Patient stated, I want a gun for half empowerment to take my own life and half for protection. I don't feel safe in my apartment because someone is messing with me. Like putting soap in my almonds, pulling out my outlet, messing with my car's muffler. I think my landlord is doing it. I get fucked over by a lot of people I don't know why . Patient educated on: diagnosis, medication risk/benefits and therapeutic st rategies Informed Consent: understands and further education needed Reason for continued inpatient stay Substantial Risk for: harm to self and med/psych decompensation Time Spent With Patient Time: Total time managing care of this patient today _60___ minutes.
[2023-04-29] MEDS: OLANZapine 5 MG TABLET PO (14:31)
[2023-04-29 19:50] VITALS: RESP 18
[2023-04-30 06:00] VITALS: BP 111/65; PULSE 92; RESP 16; TEMP 36.2; O2SAT 99
[2023-04-30] MEDS: OLANZapine 5 MG TABLET PO (15:21)
--- NOTE | 2023-04-30 16:01 | P.PNPSI_ITS ---
Subjective Subjective Date of Service: 04/30/23 Reason For Visit: SI,Psychosis Subjective Notes: Conditional Voluntary and 3 Day Interim History: pt withdrawn isolated took olanzapine x2 states what proof do u have that i am delusional given info re paranoia mental illness Medication Compliance: Intermittent Diagnostics Vital Signs (24Hr): Vital Signs - 24 hr 04/29/23 19:50 04/30/23 06:00 Temperature 97.2 F Pulse Rate 92 Respiratory Rate 18 16 Blood Pressure 111/65 Pulse Oximetry 99 Oxygen Delivery Method Room Air BMI result Body Mass Index 19.8 Labs 04/26/23 20:56 04/26/23 20:56 Medications Medications Current Medications Acetaminophen (Acetaminophen 325 Mg Tablet) 650 mg PO Q6H PRN PRN Reason: Headache/Pain Mild Scale (1-3) Al Hydroxide/Mg Hydroxide (Magnesium Hydrox/Alum Hydrox 30 Ml Oral.Susp) 30 ml PO Q6H PRN PRN Reason: Heartburn/Nausea Hydroxyzine HCl (Hydroxyzine Hcl 25 Mg Tablet) 25 mg PO Q6H PRN PRN Reason: Anxiety Magnesium Hydroxide (Milk Of Magnesia 30 Ml Oral.Susp) 30 ml PO DAILY PRN PRN Reason: Constipation Olanzapine (Olanzapine 5 Mg Tablet) 5 mg PO BID@1400,2100 DREW Trazodone HCl (Trazodone Hcl 50 Mg Tablet) 50 mg PO BEDTIME MRX1 PRN PRN Reason: Insomnia Allergies Allergies Allergy/AdvReac Type Severity Reaction Status Date / Time No Known Allergies Allergy Verified 11/07/22 09:58 Assessment & Plan Assessment & Plan (1) Schizophrenia: Status: Acute Code(s): F20.9 - Schizophrenia, unspecified Plan Pt is a 27 year old male with hx of schizophrenia (recently discharged from on 03/24/2023), who was assessed by [facility] crisis team secondary to him texting his friend in [place] endorsing derealization and paranoid delusion of someone sending him text message threats. According to the crisis report, patient asked his friend how to obtain a gun so that he had the power to end his life. Plan: 3 day 15 minute safety checks Referral to outpatient psychiatrist and therapist Zyprexa 5mg PO BID 04/29: Patient reports he does not feel he should be hospitalized. Patient stated, I want a gun for half empowerment to take my own life and half for protection. I don't feel safe in my apartment because someone is messing with me. Like putting soap in my almonds, pulling out my outlet, messing with my car's muffler. I think my landlord is doing it. I get fucked over by a lot of people I don't know why . 04/30/23 Pt cont with lack of insight taking olanzapine 5 mg aware of legal process Reason for continued inpatient stay Substantial Risk for: harm to self Time Spent With Patient Time: Total time managing care of this patient today ____ minutes.
[2023-04-30 20:00] VITALS: BP 119/60; PULSE 75; RESP 18; TEMP 36.6; O2SAT 99
--- NOTE | 2023-05-01 10:07 | HO.PSYCHPN ---
Subjective Subjective Date of Service: 05/01/23 Reason For Visit: SI,Psychosis Subjective Notes: Conditional Voluntary and 3 Day Interim History: Patient was focused on conversation from yesterday regarding proof that his thoughts are delusional. Encouraged patient to trying keep an open mind to challenge some of his thinking. To be open evidence per Maki. Discussion was held regarding issues related to safety after discharge. Patient was focused on having a gun still that he could use either end his life for defend himself in a situation where he felt threatened. He stated at some was messing with him messing with his car and had sent a threatening text that he felt his life was in jeopardy. Try to to discuss with the patient ways of feeling safe in safety plan that would not necessarily involve procuringa weapon. Medication Compliance: Intermittent Attending Groups: No Mental Status Exam Mental Status Exam Narrative: Pt is alert and oriented; behavior is calm often with a somewhat angry demeanor dressed in hospital attire with unkempt hair and poor hygiene; mood is described as fine ; eye contact appropriate; Speech is normal rate, volume and prosody and not pressured; some periods of restlessness thought process is organized; Thought content is on that there is no proof that his thinking is in error ; patient presents with paranoid delusions regarding his landlord or someone messing with him . ; There is no evidence of perceptual disturbance. Patients insight and judgment are poor. Continues to state that he would want to procure a weapon that he could use to defend himself against attacked or use on himself if needed but mostly was focused on thought of being able to defend himself with a gun Diagnostics Vital Signs (24Hr): Vital Signs - 24 hr 04/30/23 20:00 Temperature 97.8 F Pulse Rate 75 Respiratory Rate 18 Blood Pressure 119/60 Pulse Oximetry 99 Oxygen Delivery Method Room Air BMI result Body Mass Index 19.8 Labs 04/26/23 20:56 04/26/23 20:56 Medications Medications Current Medications Acetaminophen (Acetaminophen 325 Mg Tablet) 650 mg PO Q6H PRN PRN Reason: Headache/Pain Mild Scale (1-3) Al Hydroxide/Mg Hydroxide (Magnesium Hydrox/Alum Hydrox 30 Ml Oral.Susp) 30 ml PO Q6H PRN PRN Reason: Heartburn/Nausea Hydroxyzine HCl (Hydroxyzine Hcl 25 Mg Tablet) 25 mg PO Q6H PRN PRN Reason: Anxiety Magnesium Hydroxide (Milk Of Magnesia 30 Ml Oral.Susp) 30 ml PO DAILY PRN PRN Reason: Constipation Olanzapine (Olanzapine 5 Mg Tablet) 5 mg PO BID@1400,2100 DREW Last Admin: 04/30/23 20:31 Dose: Not Given Trazodone HCl (Trazodone Hcl 50 Mg Tablet) 50 mg PO BEDTIME MRX1 PRN PRN Reason: Insomnia Allergies Allergies Allergy/AdvReac Type Severity Reaction Status Date / Time No Known Allergies Allergy Verified 11/07/22 09:58 Assessment & Plan Assessment & Plan (1) Schizophrenia: Status: Acute Code(s): F20.9 - Schizophrenia, unspecified Plan Pt is a 27 year old male with hx of schizophrenia (recently discharged from on 03/24/2023), who was assessed by [facility] crisis team secondary to him texting his friend in [place] endorsing derealization and paranoid delusion of someone sending him text message threats. According to the crisis report, patient asked his friend how to obtain a gun so that he had the power to end his life. Plan: 3 day 15 minute safety checks Referral to outpatient psychiatrist and therapist Zyprexa 5mg PO BID 04/29: Patient reports he does not feel he should be hospitalized. Patient stated, I want a gun for half empowerment to take my own life and half for protection. I don't feel safe in my apartment because someone is messing with me. Like putting soap in my almonds, pulling out my outlet, messing with my car's muffler. I think my landlord is doing it. I get fucked over by a lot of people I don't know why . 04/30/23 Pt cont with lack of insight taking olanzapine 5 mg aware of legal process 05/01/2023 Patient is taking a dose of olanzapine daily. During discussion regarding safety and evaluation for possibility of filing section 7 and treatment plan patient continues to feel that he should try to procure a weapon so he could defend himself from possible attack has felt threatened also talks about setting up cameras and cameras to watch his car Patient educated on: diagnosis and other (Safety concerns) Informed Consent: further education needed Reason for continued inpatient stay Substantial Risk for: harm to self, harm to others and rapid decompensation Time Spent With Patient Time: Total time managing care of this patient today __35__ minutes.
[2023-05-01] MEDS: OLANZapine 5 MG TABLET PO (14:51)
[2023-05-01 14:55] VITALS: BP 125/75; PULSE 79; RESP 16; O2SAT 97
[2023-05-02 08:46] VITALS: BP 115/70; PULSE 82; RESP 18; TEMP 36; O2SAT 99
--- NOTE | 2023-05-02 09:54 | P.PNPSI_ITS ---
Subjective Subjective Date of Service: 05/02/23 Reason For Visit: SI,Psychosis Subjective Notes: Conditional Voluntary Interim History: Reviewed in team and Dr. Linares. Patient continues to lack insight into his mental illness. Pt states he believes he does not have a mental illness . Patient stated, the things that happened to me are not a delusion. Someone is messing with my car and my apartment. Someone is sending me threats. I'm not making it up . He continues to reiterate that owning a gun seems like the right decision for safety and empowerment to take my life . Medication Compliance: Intermittent Side effects from medications: No Attending Groups: No Review of Systems Constitutional: Reports as per HPI Eyes: Reports as per HPI Reports as per HPI Cardiovascular: Reports as per HPI Respiratory: Reports as per HPI Gastrointestinal: Reports as per HPI Genitourinary: Reports as per HPI Musculoskeletal: Reports as per HPI Skin/Breast: Reports as per HPI Reports as per HPI Psychiatric: Reports as per HPI Endocrine: Reports as per HPI Hematologic/Lymphatic: Reports as per HPI Allergic/Immunologic: Reports as per HPI Mental Status Exam Mental Status Exam Narrative: Pt is alert and oriented; behavior is calm; dressed in hospital attire with unkempt hair and poor hygiene; mood is described as fine ; eye contact appropriate; Speech is normal rate, volume and prosody and not pressured; no psychomotor agitation/retardation present; thought process is organized; Thought content is on discharge; patient presents with paranoid delusions regarding his landlord or someone messing with him . ; pt reports wanting to possess a gun for empowerment to commit suicide . There is no evidence of perceptual disturbance. Patients insight and judgment are poor. Diagnostics Vital Signs (24Hr): Vital Signs - 24 hr 05/01/23 14:55 05/02/23 08:46 Temperature 96.8 F Pulse Rate 79 82 Respiratory Rate 16 18 Blood Pressure 125/75 115/70 Pulse Oximetry 97 99 Oxygen Delivery Method Room Air Room Air BMI result Body Mass Index 19.8 Labs 04/26/23 20:56 04/26/23 20:56 Medications Medications Current Medications Acetaminophen (Acetaminophen 325 Mg Tablet) 650 mg PO Q6H PRN PRN Reason: Headache/Pain Mild Scale (1-3) Al Hydroxide/Mg Hydroxide (Magnesium Hydrox/Alum Hydrox 30 Ml Oral.Susp) 30 ml PO Q6H PRN PRN Reason: Heartburn/Nausea Hydroxyzine HCl (Hydroxyzine Hcl 25 Mg Tablet) 25 mg PO Q6H PRN PRN Reason: Anxiety Magnesium Hydroxide (Milk Of Magnesia 30 Ml Oral.Susp) 30 ml PO DAILY PRN PRN Reason: Constipation Olanzapine (Olanzapine 5 Mg Tablet) 5 mg PO BID@1400,2100 DREW Last Admin: 05/01/23 23:20 Dose: Not Given Trazodone HCl (Trazodone Hcl 50 Mg Tablet) 50 mg PO BEDTIME MRX1 PRN PRN Reason: Insomnia Allergies Allergies Allergy/AdvReac Type Severity Reaction Status Date / Time No Known Allergies Allergy Verified 11/07/22 09:58 Assessment & Plan Assessment & Plan (1) Schizophrenia: Status: Acute Code(s): F20.9 - Schizophrenia, unspecified Plan Pt is a 27 year old male with hx of schizophrenia (recently discharged from on 03/24/2023), who was assessed by [facility] crisis team secondary to him texting his friend in [place] endorsing derealization and paranoid delusion of someone sending him text message threats. According to the crisis report, patient asked his friend how to obtain a gun so that he had the power to end his life. Plan: CV 15 minute safety checks Referral to outpatient psychiatrist and therapist 04/29: Patient reports he does not feel he should be hospitalized. Patient stated, I want a gun for half empowerment to take my own life and half for protection. I don't feel safe in my apartment because someone is messing with me. Like putting soap in my almonds, pulling out my outlet, messing with my car's muffler. I think my landlord is doing it. I get fucked over by a lot of people I don't know why . 04/30: Pt cont with lack of insight taking olanzapine 5 mg aware of legal process 05/01: Patient is taking a dose of olanzapine daily. During discussion regarding safety and evaluation for possibility of filing section 7 and treatment plan patient continues to feel that he should try to procure a weapon so he could defend himself from possible attack has felt threatened also talks about setting up cameras and cameras to watch his car. 05/02: Patient continues to lack insight into his mental illness. Pt states he believes he does not have a mental illness . He continues to reiterate that owning a gun seems like the right decision . DC Zyprexa, Start resperidal 1mg PO bedtime, risks/benefits discussed with patient. Patient would benefit from long acting injectable medication. Patient educated on: diagnosis, medication risk/benefits and therapeutic strategies Informed Consent: understands and further education needed Reason for continued inpatient stay Substantial Risk for: harm to self, harm to others and med/psych decompensation Time Spent With Patient Time: Total time managing care of this patient today _30___ minutes.
[2023-05-02] MEDS: risperiDONE 1 MG TABLET PO (13:47)
[2023-05-03 08:15] VITALS: BP 106/67; PULSE 80; RESP 16; TEMP 36.7; O2SAT 98
--- NOTE | 2023-05-03 09:17 | HO.PSYCHPN ---
Subjective Subjective Date of Service: 05/03/23 Reason For Visit: SI,Psychosis Subjective Notes: Conditional Voluntary Interim History: Reviewed in team and Dr. Linares. Patient continues to lack insight into his mental illness. Patient stated, I'm feeling the same since yesterday. I still have the same thoughts with regards to the things that have happened. I still feel like I should have a gun . Medication Compliance: Intermittent Side effects from medications: No Attending Groups: No Review of Systems Review of Systems Constitutional : No Fever, No Chills Cardiovascular : No Chest Pain, No SOB Respiratory : No Cough, No Sputum, No Dyspnea Gastrointestinal : No Nausea, No Vomiting, No Diarrhea, No Hematochezia, No Melena Genitourinary : No Dysuria, No Urinary Frequency, No Hematuria Musculoskeletal : No Myalgias Skin : No Skin Lesions, No rash Neuro : No Weakness, No Numbness, No Paresthesias, No Dizziness, No Headache Psych : no Anxiety, positive Depression, no SI/HI All other systems reviewed and are negative Constitutional: Reports as per HPI Eyes: Reports as per HPI Reports as per HPI Cardiovascular: Reports as per HPI Respiratory: Reports as per HPI Gastrointestinal: Reports as per HPI Genitourinary: Reports as per HPI Musculoskeletal: Reports as per HPI Skin/Breast: Reports as per HPI Reports as per HPI Psychiatric: Reports as per HPI Endocrine: Reports as per HPI Hematologic/Lymphatic: Reports as per HPI Allergic/Immunologic: Reports as per HPI Mental Status Exam Mental Status Exam Narrative: Pt is alert and oriented; behavior is calm; dressed in hospital attire with unkempt hair and poor hygiene; mood is described as fine ; eye contact appropriate; Speech is normal rate, volume and prosody and not pressured; no psychomotor agitation/retardation present; thought process is organized; Thought content is on discharge; patient presents with paranoid delusions regarding his landlord or someone messing with him . ; pt reports wanting to possess a gun for empowerment to commit suicide . There is no evidence of perceptual disturbance. Patients insight and judgment are poor. Diagnostics Vital Signs (24Hr): BMI result Body Mass Index 19.8 Labs 04/26/23 20:56 04/26/23 20:56 Medications Medications Current Medications Acetaminophen (Acetaminophen 325 Mg Tablet) 650 mg PO Q6H PRN PRN Reason: Headache/Pain Mild Scale (1-3) Al Hydroxide/Mg Hydroxide (Magnesium Hydrox/Alum Hydrox 30 Ml Oral.Susp) 30 ml PO Q6H PRN PRN Reason: Heartburn/Nausea Hydroxyzine HCl (Hydroxyzine Hcl 25 Mg Tablet) 25 mg PO Q6H PRN PRN Reason: Anxiety Magnesium Hydroxide (Milk Of Magnesia 30 Ml Oral.Susp) 30 ml PO DAILY PRN PRN Reason: Constipation Risperidone (Risperidone 1 Mg Tablet) 1 mg PO BEDTIME DREW Last Admin: 05/02/23 13:47 Dose: 1 mg Trazodone HCl (Trazodone Hcl 50 Mg Tablet) 50 mg PO BEDTIME MRX1 PRN PRN Reason: Insomnia Allergies Allergies Allergy/AdvReac Type Severity Reaction Status Date / Time No Known Allergies Allergy Verified 11/07/22 09:58 Assessment & Plan Assessment & Plan (1) Schizophrenia: Status: Acute Code(s): F20.9 - Schizophrenia, unspecified Plan Pt is a 27 year old male with hx of schizophrenia (recently discharged from on 03/24/2023), who was assessed by [facility] crisis team secondary to him texting his friend in [place] endorsing derealization and paranoid delusion of someone sending him text message threats. According to the crisis report, patient asked his friend how to obtain a gun so that he had the power to end his life. Plan: CV 15 minute safety checks Referral to outpatient psychiatrist and therapist 04/29: Patient reports he does not feel he should be hospitalized. Patient stated, I want a gun for half empowerment to take my own life and half for protection. I don't feel safe in my apartment because someone is messing with me. Like putting soap in my almonds, pulling out my outlet, messing with my car's muffler. I think my landlord is doing it. I get fucked over by a lot of people I don't know why . 04/30: Pt cont with lack of insight taking olanzapine 5 mg aware of legal process 05/01: Patient is taking a dose of olanzapine daily. During discussion regarding safety and evaluation for possibility of filing section 7 and treatment plan patient continues to feel that he should try to procure a weapon so he could defend himself from possible attack has felt threatened also talks about setting up cameras and cameras to watch his car. 05/02: Patient continues to lack insight into his mental illness. Pt states he believes he does not have a mental illness . He continues to reiterate that owning a gun seems like the right decision . DC Zyprexa, Start resperidal 1mg PO bedtime, risks/benefits discussed with patient. Patient would benefit from long acting injectable medication. 05/03: Patient continues to lack insight into his mental illness. Patient stated, I'm feeling the same since yesterday. I still have the same thoughts with regards to the things that have happened. I still feel like I should have a gun . Resperidal increased to 2mg PO daily starting tomorrow. Patient educated on: diagnosis, medication risk/benefits and therapeutic strategies Informed Consent: understands and further education needed Reason for continued inpatient stay Substantial Risk for: harm to self and med/psych decompensation Time Spent With Patient Time: Total time managing care of this patient today _30___ minutes.
[2023-05-03] MEDS: risperiDONE 1 MG TABLET PO (14:18)
[2023-05-03 20:15] VITALS: BP 110/70; PULSE 76; RESP 18; TEMP 36.6; O2SAT 98
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
[2023-05-04 21:41] VITALS: RESP 14
[2023-05-05 07:00] VITALS: BMI 20.4
[2023-05-05 19:50] VITALS: BP 126/70; PULSE 70; RESP 16; TEMP 36.6; O2SAT 98
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
--- NOTE | 2023-05-06 13:54 | PC.NURSE ---
Chance is discharged at this time. He denies ideation, plan or intent to harm self or others. He denies physical complaint
== END 2023-05-06 13:50 | disposition home or self-care (01) | DRG 885 ==
LOC: HO.ED 04-27 07:34 → HO.PADLT16 04-27 17:29
PROVIDERS: Admitting Provider Psychiatry & Neurology Psychiatry; Emergency Provider Emergency Medicine; Responsible Provider Registered Nurse; Visit Provider Psychiatry & Neurology Psychiatry
DX: F20.9 Schizophrenia, unspecified (principal); R45.851 Suicidal ideations
CPT/HCPCS: 36415; 80053; 80143; 80179; 80307; 81001; 85025; 99285

== ENCOUNTER → 2023-04-27 17:18 | Outpatient (BNV) | payer SELFPAY | PROVIDERS: Admitting Provider Psychiatry & Neurology Psychiatry; Emergency Provider Emergency Medicine; Responsible Provider Registered Nurse; Visit Provider Psychiatry & Neurology Psychiatry | DX: F20.0 Paranoid schizophrenia (principal) | CPT/HCPCS: 99232; 99233 ==

== ENCOUNTER → 2023-04-27 17:18 | Outpatient (BNV) | payer SELFPAY | PROVIDERS: Admitting Provider Psychiatry & Neurology Psychiatry; Emergency Provider Emergency Medicine; Responsible Provider Registered Nurse; Visit Provider Registered Nurse | DX: F20.0 Paranoid schizophrenia (principal) | CPT/HCPCS: 90792; 99231; 99232; 99233; 99238 ==